=== PATIENT | male | born 1945 | race Caucasian/White ===

== ENCOUNTER 2022-03-24 07:41 | Day surgery (SDC) | payer MEDICARE, OTHER ==
[~2022-03-24] VITALS: Ht 170.2 cm; Wt 71.0 kg
[~2022-03-24 07:41] MED LIST: BENICAR20 MG PO; BREO ELLIPTA 21 EACH; CARDURA4 MG PO; FLOMAX0.4 MG; INCRUSE ELLI62.5 MCG; LEXAPRO20 MG PO; LIPITOR20 MG; OXYBUTYNIN CHLOR5 MG PO; ZIAC 5-6.25 MG1 TAB PO
--- NOTE | 2022-03-24 12:18 | NUR ---
1145: PT ARRIVES BACK TO DS RM 12 FROM OPERATING ROOM. PT HAS URINAL ON ARRIVAL AND HAS VOIDED APPROX 250MLS YELLOW URINE. PT WOULD LIKE TO USE URINAL AGAIN, VOIDS APPROX 200 MLS YELLOW URINE WITH NO PROBLEMS. GAUZE WRAPPED AROUND PT GLASSES, STATES "CANNOT SEE VERY WELL WITHOUT THEM" TO PROTECT WOUND. DC INSTRUCTIONS PROVIDED WRITTEN AND VERBALLY TO PT AND SPOUSE. PT DC FROM DS RM 12 VIA WC TO SPOUSE WAITING AT HOSPITAL ENTRANCE TO HOME.
--- NOTE | 2022-03-31 10:47 | OR ---
[facility] [address] [place], [place] [address] Signed DATE OF OPERATION: 03/24/2022 SURGEON: Ashish Freire MD PREOPERATIVE DIAGNOSIS: Left auricular lesion. POSTOPERATIVE DIAGNOSIS: Left auricular lesion. PROCEDURE: Wide excision, radical excision of left auricular lesion. ANESTHESIA: Local standby. 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 He has a very suspicious lesion in the left ear that is suspicious for skin cancer. He is taken to the operating room for the above-mentioned procedures. OPERATIVE PROCEDURE AND FINDINGS: After informed consent, the patient was taken to the OR, left on the same day rmarianna semi-sitting, the patient and procedure verified. Left ear was sterilely prepped and draped. Head turned to the right. The lesion in question was in the upper auricle from about the 10 o'clock to 12 o'clock in anatomic position with the portion of the lesion near the scalp skin. Total length of the tumor was approximately 3 cm. After sterile prep and drape, excision was marked basically amputating the upper portion of the auricle with adjacent scalp skin. The excision site was marked. 1% lidocaine with epinephrine was injected. Then an excision was then performed basically amputating the upper portion and medial portion of the auricle including cartilage. Lesion was completely excised with about a cm margins by gross visualization. A suture was placed on the medial scalp edge of the excision and it was sent in formalin. The underlying cartilage was then excised to allow for tension-free closure. Hemostasis was obtained with needle point cautery. The wound was then closed, complex wound closure with 5-0 running nylon and interrupted nylon subcutaneous stitches, 4-0 Vicryl. The wound was cosmetically closed. Skin cleansed. Neosporin was applied. The patient was then transported back to same day in good condition. Electronically Signed By: ASHISH FREIRE MD 03/31/22 1047 PATIENT NAME: AMARJIT CASTRO OPERATIVE REPORT DATE OF : 41 REPORT #: [id number] PHYSICIAN: ASHISH FREIRE MD PCP: CALEB VALLES NP REPORT IS CONFIDENTIAL AND NOT TO BE RELEASED WITHOUT AUTHORIZATION [facility] [address] [place] [id number] Signed COMPLICATIONS: None. BLOOD LOSS: Minimal. SPECIMEN: To pathology. DRAINS: None. Ashish Freire MD GC/MODL /[id number] Copies: ~ Electronically Signed By: ASHISH FREIRE MD 03/31/22 1047 PATIENT NAME: AMARJIT CASTRO OPERATIVE REPORT DATE OF : 41 REPORT #: [id number] PHYSICIAN: ASHISH FREIRE MD PCP: CALEB VALLES NP REPORT IS CONFIDENTIAL AND NOT TO BE RELEASED WITHOUT AUTHORIZATION
--- NOTE | 2022-03-31 13:55 | PATH ---
[facility] [address] [place], [place] [address] Signed SPECIMEN(S): A LEFT EAR SPECIMEN SOURCE: A. LEFT EAR CLINICAL HISTORY: Excision left ear lesion, suspicious for neoplasm. FINAL PATHOLOGIC DIAGNOSIS: Ear, left, partial auriculectomy: - Invasive well-differentiated squamous cell carcinoma. - Carcinoma present at medial side (head) margin. - Carcinoma is absent, but close ( <1 mm) to the ear margin. COMMENT: As part of [facility]'s Senior Staff Psychologist program, this case was reviewed by another member of our pathology staff. NAL:cml:C1NR MICROSCOPIC EXAMINATION: Histologic sections of all submitted blocks are examined by light microscopy. These findings, together with the gross examination, support the pathologic diagnosis. GROSS DESCRIPTION: The specimen, labeled "LW, left ear," is received in formalin and consists of a piece of the helix that measures 2.7 x 1.2 x 1.2 cm. Skin surface shows irregular shaped, ulcerous defect that measures 1.6 x 0.7 cm. Defect is 0.3 cm from the nearest surgical margin. Specimen is oriented with a black stitch as a head (medial) side. Specimen is inked: Medial side (head)-blue and deep margin-black. Specimen is serially sectioned from medial to the lateral. Cassette Summary: (A1) Medial margin, shave, face down (A2-A3) The remaining of the specimen sequentially and entirely submitted from medial to lateral JS (under the direct supervision of a pathologist) The Gross Description was prepared using a voice recognition system. The report was reviewed for accuracy; however, sound-alike word errors, addition and/or deletions may occur. If there is any question about this report, please contact Client Services. PATIENT NAME: AMARJIT CASTRO PATHOLOGY DATE OF : 41 REPORT #: [id number] PHYSICIAN: SAUL PATHOLOGY PCP: CALEB VALLES NP REPORT IS CONFIDENTIAL AND NOT TO BE RELEASED WITHOUT AUTHORIZATION [facility] [address] [place] [address] Signed PERFORMING LABORATORY: The technical component [place] [address] (CLIA# [id number]). Professional interpretation was performed by [facility], [address] [address] (CLIA# [id number]). Diagnostician: Esperanza Corral MD Pathologist Electronically Signed 03/31/2022 Copies: ~ PATIENT NAME: AMARJIT CASTRO PATHOLOGY DATE OF : 41 REPORT #: [id number] PHYSICIAN: SAUL HERNANDEZ PCP: CALEB VALLES NP REPORT IS CONFIDENTIAL AND NOT TO BE RELEASED WITHOUT AUTHORIZATION
== END 2022-03-24 12:08 | disposition home or self-care (01) ==
LOC: DS 07:41 → OPS 07:41 → DS 10:30 → OPS 12:08
PROVIDERS: ATTEND Otolaryngology
PROC: 0HB3XZX Excision of Left Ear Skin, External Approach, Diagnostic (ICD-10-PCS; principal; 2022-03-24 10:30)
DX: C44.229 Squamous cell carcinoma of skin of left ear and external auricular canal (principal); I10 Essential (primary) hypertension; E78.00 Pure hypercholesterolemia, unspecified; Z87.891 Personal history of nicotine dependence